=== PATIENT | female | born 1990 | race American Indian/Alaskan Native ===

== ENCOUNTER 2021-09-08 01:33 | Emergency (ER) | payer SELFPAY ==
[2021-09-08 01:43] VITALS: BP 129/86
[2021-09-08] MEDS ORDERED: HYDROcodone/ACETAMINOPHEN 5-325 MG TAB PO STA (02:06)
--- NOTE | 2021-09-08 02:41 | XRay Report ---
CERVICAL SPINE 3 VIEWS INDICATION / CLINICAL INFORMATION: neck pain. COMPARISON: None available. FINDINGS: VERTEBRAE: No acute fracture. No significant malalignment. DISC SPACES / FACET JOINTS:Mild degenerative disc disease as seen at C3-C4 and C5-C6. PARASPINAL SOFT TISSUES:No significant abnormality. ADDITIONAL FINDINGS: None. Signer Name: Cody Cormier DO Signed: 09/08/2021 2:37 AM Workstation Name: [id number]
--- NOTE | 2021-09-08 02:58 | Emergency Department Report ---
ED Neck Pain/Injury HPI - General Chief Complaint: Neck Pain/Injury Stated Complaint: RT EAR, NECK, SHOULDER PAIN Time Seen by Provider: 09/08/21 02:03 Mode of arrival: Ambulatory Limitations: No Limitations - History of Present Illness Initial Comments: 40-year-old [place] female [facility] emerge department planing spontaneously developing left-sided neck pain that radiates to her shoulder while she was sleeping cardiac been related to her position this was followed by having some tingling and vague numbing sensation to her left's arms and legs which she has had in the past when she has had neck discomfort but she does not know what the actual cause of this is. MD Complaint: neck pain -: Gradual Place: home Radiation: left lateral Severity: mild, moderate Quality: dull, aching Consistency: constant Improves With: none Worsens With: none Associated Symptoms: none. denies: headache, numbness, difficulty walking, swollen glands Treatments Prior to Arrival: none - Related Data Previous Rx's Medication Instructions Recorded Last Taken Type Ketorolac [Toradol] 10 mg PO Q6H PRN #14 tablet 09/08/21 Unknown Rx methOCARBAMOL [Robaxin TAB] 500 mg PO Q6H #20 tablet 09/08/21 Unknown Rx ED Review of Systems ROS: Stated complaint: RT EAR, NECK, SHOULDER PAIN Other details as noted in HPI Comment: All other systems reviewed and negative ED Past Medical Hx - Medications Home Medications: Home Medications Medication Instructions Recorded Confirmed Last Taken Type Ketorolac [Toradol] 10 mg PO Q6H PRN #14 tablet 09/08/21 Unknown Rx methOCARBAMOL [Robaxin TAB] 500 mg PO Q6H #20 tablet 09/08/21 Unknown Rx ED Physical Exam - General Limitations: No Limitations General appearance: alert, in no apparent distress - Head Head exam: Present: atraumatic, normocephalic - Eye Eye exam: Present: normal appearance, PERRL, EOMI Pupils: Present: normal accommodation - ENT ENT exam: Present: normal exam, normal orophraynx, mucous membranes moist, TM's normal bilaterally - Neck Neck exam: Present: normal inspection, tenderness (Some spasm noted to the left trapezial region with palpation. No midline tenderness noted. Spurling's test is negative.), full ROM - Respiratory Respiratory exam: Present: normal lung sounds bilaterally. Absent: respiratory distress - Cardiovascular Cardiovascular Exam: Present: regular rate, normal rhythm. Absent: systolic murmur, diastolic murmur, rubs, gallop - GI/Abdominal GI/Abdominal exam: Present: soft, normal bowel sounds - Extremities Exam Extremities exam: Present: normal inspection - Back Exam Back exam: Present: normal inspection - Neurological Exam Neurological exam: Present: alert, oriented X3, CN II-XII intact, normal gait - Psychiatric Psychiatric exam: Present: normal affect, normal mood - Skin Skin exam: Present: warm, dry, intact, normal color. Absent: rash ED Course Vital Signs 09/08/21 01:42 Temperature 97.9 F Pulse Rate 86 Respiratory 16 Rate Blood Pressure 129/86 O2 Sat by Pulse 98 Oximetry Critical care attestation.: If time is entered above; I have spent that time in minutes in the direct care of this critically ill patient, excluding procedure time. ED Disposition Clinical Impression: Cervical paraspinal muscle spasm, Neck pain Disposition: HOME / SELF CARE / HOMELESS Is pt being admited?: No Does the pt Need Aspirin: No Condition: Stable Instructions: Muscle Cramps and Spasms, Neck Exercises, Radicular Pain Prescriptions: methOCARBAMOL [Robaxin TAB] 500 mg PO Q6H #20 tablet Ketorolac [Toradol] 10 mg PO Q6H PRN #14 tablet PRN Reason: Pain Referrals: [facility] [Provider Group] - 3-5 Days CARMEN SMITH MD [Staff Physician] - 3-5 Days
== END 2021-09-08 03:19 | disposition home or self-care (01) ==
LOC: ED 01:33
DX: M62.838 Other muscle spasm (principal); M54.2 Cervicalgia; Z79.899 Other long term (current) drug therapy
CPT/HCPCS: 72040; 99283